=== PATIENT | male | born 1950 | race Caucasian/White ===

== ENCOUNTER 2022-06-07 14:23 | Emergency (ER) | payer MEDICARE, BC | END 2022-06-07 16:40 | LOC: JD.ED 14:23 | DX: Z53.21 Procedure and treatment not carried out due to patient leaving prior to being seen by health care provider (principal) ==

== ENCOUNTER 2023-05-12 17:01 | Emergency (ER) | payer MEDICARE, BC | END 2023-05-12 20:33 | disposition home or self-care (01) | LOC: JD.ED 17:01 | DX: R42 Dizziness and giddiness (principal); G93.89 Other specified disorders of brain; Z86.69 Personal history of other diseases of the nervous system and sense organs; Z98.2 Presence of cerebrospinal fluid drainage device | CPT/HCPCS: 70250; 70250-26; 70360; 70450; 70450-26; 71046; 74019; 99284 ==

== ENCOUNTER 2024-06-21 14:36 | Day surgery (SDC) | payer MEDICARE, BC ==
[~2024-06-21 14:36] MED LIST: Dexamethasone 4 MG/ML 5 ML MDV ONE; HYDROmorphone 0.5 MG/0.5 ML Syringe IVPUSH PRN; Midazolam 1 MG/ML 2 ML SDV ONE; Ondansetron 4 MG/2 ML SDV IVPUSH PRN; Ondansetron 4 MG/2 ML SDV ONE; Propofol 200 MG/20 ML SDV ONE; Rocuronium 50 MG/5 ML Vial ONE; ceFAZolin 1 GM in Sodium Chloride 0.9% 50 ML IV ONE; ceFAZolin 2 GM Vial ONE; ceFAZolin 2 GM in Sodium Chloride 0.9% 50 ML IV ONE; fentaNYL 100 MCG/2 ML SDV IVPUSH PRN; fentaNYL 250 MCG/5 ML SDV ONE
[2024-06-21] MEDS ORDERED: Phenylephrine 1% 10 MG/ML SDV ONE (14:40)
[2024-06-21] MEDS ORDERED: Sodium Chloride 0.9% 100 ML ONE (14:40)
[2024-06-21] MEDS: Lactated Ringers 1,000 ML IV SCH (15:05)
[2024-06-21] MEDS ORDERED: Sugammadex Sodium 200 MG/2 ML VIAL IV ONE (16:49)
[2024-06-21] MEDS: Bupivacaine 0.5% 30 ML SDV ONE (17:23)
== END 2024-06-21 18:50 | disposition home or self-care (01) ==
LOC: JD.SDS 14:36
PROVIDERS: ATTEND Surgery
DX: K42.0 Umbilical hernia with obstruction, without gangrene (principal); J44.9 Chronic obstructive pulmonary disease, unspecified; E11.9 Type 2 diabetes mellitus without complications; I25.10 Atherosclerotic heart disease of native coronary artery without angina pectoris; I50.9 Heart failure, unspecified; F41.9 Anxiety disorder, unspecified; E78.00 Pure hypercholesterolemia, unspecified; K21.9 Gastro-esophageal reflux disease without esophagitis; Z79.82 Long term (current) use of aspirin; Z79.899 Other long term (current) drug therapy
CPT/HCPCS: 49592; C1781; J0665; J0690; J1100; J2250; J2371; J2405; J2704; J3010; J3490; J7120; 00840; 76705; 76705-26; 87641; 99213